=== PATIENT | female | born 1995 | race Two or more races ===

== ENCOUNTER 2024-01-19 16:41 | Emergency (ER) | payer OTHER ==
[~2024-01-19] VITALS: Ht 157.5 cm; Wt 68.3 kg
[2024-01-19 18:28] VITALS: BP 155/93; PULSE 112; RESP 18; TEMP 98.6; O2SAT 98
[2024-01-19] MEDS: KETOROLAC TROMETH 60MG/2ML VIAL IM ONE (20:18)
== END 2024-01-19 21:30 | disposition home or self-care (01) ==
LOC: ER 16:41
DX: H69.92 Unspecified Eustachian tube disorder, left ear (principal)
CPT/HCPCS: 70450; 81025; 96372; 99285; J1885